=== PATIENT | male | born 1980 | race Caucasian/White ===

== ENCOUNTER 2016-08-22 01:40 | Emergency (ER) | payer SELFPAY ==
[2016-08-22] MEDS ORDERED: OXYCODONE/ACETAMINOPHEN 5/325 MG TABLET ONE (02:04)
[2016-08-22] MEDS ORDERED: AMOX 875 MG/CLAV 125 MG 1 EACH TABLET ONE (02:04)
== END 2016-08-22 02:20 | disposition home or self-care (01) ==
LOC: ED 01:40
DX: H66.92 Otitis media, unspecified, left ear (principal)